=== PATIENT | female | born 2000 | race Caucasian/White ===

== ENCOUNTER 2023-05-16 15:34 | Emergency (ER) | payer BC, SELFPAY ==
[2023-05-16 15:42] VITALS: BP 124/72; PULSE 80; RESP 16; TEMP 37.3; O2SAT 99; BMI 20.4
--- NOTE | 2023-05-16 16:45 | ED.GENADULT ---
HPI - General Adult General Chief complaint: Headache/Migraine Stated complaint: headache, loss of vison R eye, numb R hand, tingle Time Seen by Provider: 05/16/23 16:45 History of Present Illness HPI narrative: sudden migraine a couple hours ago, followed by aura and loss of vision in R eye. tingly in R hand from thumb to pinky. does get migraines but has never had loss of vision on tingly. continues to have headache. tingly in bilateral pinkies. states had momentary confusion. 2 hours ago took ibuprofen. 22-year-old young woman presenting to the emergency department concern of migraine. She does have an underlying history of migraines. What is particularly concerning though is that had a blurriness/loss of vision in the right eye. She has also been tingly in her right hand. Still with headache. Subsequently developed some tingling in both hands or least little fingers. Has been a little confused. Has treated with some ibuprofen. No discoordination. Admittedly the headache specifically is the less concerning aspect. Does take an oral contraceptive and family had expressed concern of possible related CVA. No family history of neuro degenerative disorders noted. Related Data Home Medications Medication Instructions Recorded Confirmed control pill 05/16/23 Allergies Allergy/AdvReac Type Severity Reaction Status Date / Time No Known Drug Allergies Allergy Verified 05/16/23 15:47 Review of Systems Status of ROS: Reports: 6 or more systems reviewed and unremarkable except as noted in History and below Exam Narrative: Exam Narrative: Very pleasant. Of good energy. Skin is warm and dry. No swelling or erythema noted about the face. Head is atraumatic. Cranial nerves 2-12 look to be intact. She is moving all extremities fluidly, without difficulty. No weakness demonstrated. Is well-perfused. Pupils are a little less than 3 mm and equal briskly reactive. Extraocular movements are full. Heart in regular rate and rhythm. Lungs appear to be clear. Subjectively odd numbish sensation as mentioned above. Const: Vital Signs, click to edit/add: Vital Signs - 24 hr 05/16/23 15:42 Temperature 99.2 F Pulse Rate [Pulse Oximeter] 80 Respiratory Rate 16 Blood Pressure [Ri ght Upper Arm] 124/72 Pulse Oximetry 99 Oxygen Delivery Me thod Room Air Documenting provider has reviewed patient's vital signs: yes Course Vital Signs Vital signs: Initial Vital Signs Temperature 99.2 F 05/16/23 15:42 Temperature Source Temporal Artery Scan 05/16/23 15:42 Pulse Rate 80 05/16/23 15:42 Respiratory Rate 16 05/16/23 15:42 Blood Pressure 124/72 05/16/23 15:42 Blood Pressure Mean 89 05/16/23 15:42 Blood Pressure Position Sitting 05/16/23 15:42 Pulse Oximetry 99 05/16/23 15:42 Oxygen Delivery Method Room Air 05/16/23 15:42 Vital Signs Temperature 99.2 F 05/16/23 15:42 Pulse Rate 80 05/16/23 15:42 Respiratory Rate 16 05/16/23 15:42 Blood Pressure 124/72 05/16/23 15:42 Pulse Oximetry 99 05/16/23 15:42 Oxygen Delivery Method Room Air 05/16/23 15:42 Temperature 99.2 F 05/16/23 15:42 Pulse Rate 80 05/16/23 15:42 Respiratory Rate 16 05/16/23 15:42 Blood Pressure 124/72 05/16/23 15:42 Pulse Oximetry 99 05/16/23 15:42 Oxygen Delivery Method Room Air 05/16/23 15:42 Medical Decision Making MDM Narrative Medical decision making narrative: I do think most likely explanation here is atypical migraine. I would like to discuss this case though with Neurology. I think this would also be reassuring to Taty. CVA of some form is certainly in differential. I do place a call to Neurology on-call. Given description they confirm that likelihood of CVA is particularly low. Would not necessarily recommend further evaluation at this time. I do return to discuss this conversation and further symptoms with Taty and her family. I am offering imaging here today but I do agree that is likely low yield. Taty is reassured at this time and chooses to leave without further evaluation. She also feels that she can manage the discomfort outpatient. Easily ambulatory from the ER. See patient discharge plan Discharge Plan Discharge Clinical Impression: Migraine Patient Disposition: Home w/ Parent or Adult Condition: Improved Additional Instructions: Continue to stay hydrated. Get regular exercise and quality sleep. Return for new and focal weakness, uncontrolled headache, repeated vomiting. Prescriptions: No Action control pill Stand Alone Forms: My[facility] Info Instructions
== END 2023-05-16 17:27 | disposition home or self-care (01) ==
LOC: ED 17:27
PROVIDERS: Emergency Provider Family Medicine
DX: G43.909 Migraine, unspecified, not intractable, without status migrainosus (principal)
CPT/HCPCS: 99283